=== PATIENT | female | born 1985 | race Caucasian/White ===

== ENCOUNTER → 2019-08-09 | Outpatient (CLI) | payer OTHER ==
--- NOTE | 2019-08-09 14:14 | KCIC ---
MRI Cervical Spine Without Contrast History: Neck pain and low back pain, previous lifting injury Technique: Multiplanar, multi sequential noncontrast MR imaging was performed of the cervical spine. Comparison: None Findings: There is some motion degradation. There is no defined or expansile cervical cord signal abnormality, limited accurate evaluation for subtle signal change due to artifact. There is no significant marrow edema. There is posterior sphenoid sinus mucous retention cyst about 1.5 cm CC and/or possible air-fluid level. Cervical intervertebral disc spaces are overall maintained. Cervical vertebral body stature and AP alignment are within normal limits. C2-C3: Neural foramina and spinal canal are adequate. C3-C4: Spinal canal and neural foramina are adequate. C4-C5: Neural foramina and spinal canal are adequate. C5-C6: Spinal canal and neural foramina are adequate. C6-C7: Neural foramina and spinal canal are adequate. C7-T1: Neural foramina and spinal canal are adequate. Impression: 1. There is no cervical spinal stenosis or neural foramina compromise. There is sphenoid sinus mucous retention cyst and/or possible air-fluid level which could be seen with acute sinusitis in the appropriate clinical setting. Electronically signed by: Rian Spencer MD (08/09/2019 2:11 PM) [email or web address]
--- NOTE | 2019-08-09 14:27 | KCIC ---
MRI Lumbar Spine without contrast History: Low back pain, lifting injury March 2018 Technique: Multiplanar, multi sequential noncontrast MR imaging was performed of the lumbar spine. Comparison: None Findings: There appears to be transitional anatomy, most inferior fully formed intervertebral disc space considered L5-S1 for this report, assumption of 5 lumbar type vertebral bodies. Lumbar vertebral body stature and AP alignment are maintained. There is no significant marrow edema. Intervertebral disc spaces are maintained. Conus terminates at the superior aspect of L1. L1-L2: This level was not included on the axial images. Spinal canal and neural foramina are adequate. L2-L3: Spinal canal and neural foramina are adequate. L3-L4: Neural foramina and spinal canal are adequate. There is mild buckling of the ligamentum flavum. L4-L5: There is minimal buckling of the ligamentum flavum. Neural foramina and spinal canal are adequate. There are small synovial cysts posterior to the facet articulations bilaterally. There is minimal facet degenerative change. L5-S1: Neural foramina and spinal canal are adequate. Impression: 1. There is no significant lumbar spinal stenosis or neural foramina compromise. Electronically signed by: Rian Spencer MD (08/09/2019 2:24 PM) [email or web address]
== END | disposition home or self-care (01) ==
LOC: KCIC MRI 13:05
PROVIDERS: ATTEND Physical Medicine & Rehabilitation Pain Medicine
DX: M47.816 Spondylosis without myelopathy or radiculopathy, lumbar region (principal); M54.2 Cervicalgia; M71.38 Other bursal cyst, other site; J34.1 Cyst and mucocele of nose and nasal sinus
CPT/HCPCS: 72141; 72148